=== PATIENT | female | born 1950 | race Caucasian/White ===

== ENCOUNTER → 2024-01-14 09:47 | Outpatient (REF) | payer OTHER, SELFPAY | LOC: RAD 09:47 | PROVIDERS: ATTENDING PHYSICIAN Orthopaedic Surgery Hand Surgery; FAMILY PHYSICIAN Family Medicine | DX: M25.512 Pain in left shoulder (principal) | CPT/HCPCS: 73200 ==

== ENCOUNTER 2024-02-14 06:14 | Inpatient (IN) | payer OTHER, SELFPAY ==
[2024-02-14] VITALS (26 sets, daily range): BP systolic 107–159; BP diastolic 43–80; BMI 43.8
[2024-02-14] MEDS: TYLENOL 1000 MG PO (06:48)
[2024-02-14] MEDS: CELEBREX 200 MG PO (06:49)
--- NOTE | 2024-02-14 07:43 | W.PN.ORTHO ---
Today's Communication / Plan
-
D/c when clinically stable.
Assessment
.
Distal Motor Intact: Yes
Dressing:
Scant areas of incisional bleeding.
Assessment:
L shoulder OA s/p L Reverse LUL w/ Dr Gan 02/14/24
- s/p L TKA, 05/2014, and R TKA, 08/2014, by Dr Olivera
DVT prophylaxis - Eliquis at modified dosing, b/l venous foot pumps
- Will resume home Eliquis dosing POD 3 if hemodynamically stable
Acute L ankle pain starting 02/12 - pt describes ankle 'gave way' and heard audible 'pop' sound - can bear weight but reportedly uncomfortable
- Order ankle x-ray
- Encouraged ice
- Tylenol ATC and Oxycodone prn
SVT in OR - short run w/o episodes since - monitor on tele
- Notably asymptomatic
- Appreciate cardio
HTN - + parameters - monitor BP
Remote DVT after ankle fx 2* factor V leiden � resume Eliquis as stated above
- Frequent and early ambulation as tolerated
- Plasma flow devices HIGHLY encouraged upon d/c
CKD stage 3 - minimize nephrotoxins
GERD - add Pepcid HS
H/o Hep B
DDD
Sciatica
Hypothyroidism
Depression
Anxiety
Osteoporosis
Morbid obesity, BMI 43.8
Follows pain mgmt. � was last Rx Oxycodone 5 mg on 01/19/24 (60 tabs for 30 days)
Plan
.
Surgery / Date: L Thompson MCCARTY w/ Dr Gan 02/14/24
DVT Prophylaxis: Other (Eliquis)
Activity:
Out of bed.
PT/OT
Discharge Plan: Home
Subjective
.
.:
Patient examined resting in PACU.
L shoulder pain 2/10 - tolerable per pt.
L ankle pain reported since yesterday. Pt reports hearing a 'pop'.
Reported SVT while in OR.
Vital Signs and Labs
.
Vital Signs and Labs:
Temp Pulse Resp BP Pulse Ox
98.2 F 87 18 159/73 96
02/14/24 06:19 02/14/24 06:19 02/14/24 06:19 02/14/24 06:19 02/14/24 06:19
Physical Exam
-
HEENT: No pallor, cyanosis, or jaundice. Throat clear.
NECK: Supple. No JVD.
RESPIRATORY: Lungs clear to auscultation.
CVS: S1, S2 normal. RRR.
ABDOMEN: Soft, non-tender. No distension. Morbidly obese.
EXTREMITIES: + LUE sling. Good molasses and caramel operator and radial pulses b/l. Able to wiggle fingers b/l. Strength equal, no calf pain with palpation/dorsiflexion. L ankle mildly TTP w/o visible injury. Chronic lymphedema of b/l LEs (L>R)
CLAY PUDDLER: AOx3. No focal deficits. construction management assistant grossly intact
--- NOTE | 2024-02-14 09:54 | CON.CAR ---
Addendum entered and electronically signed by Tyler Logan MD (Ellie) 02/14/24 13:19:
I saw and examined the patient.
The RETAIL MARKETING EXECUTIVE's note was reviewed and I agree with the note.
Comment:
73-year-old female (seen by Dr. Beck in 2014 for preop risk assessment for knee replacement surgery), with factor V Leiden (on apixaban), hypothyroidism, GERD, DVT in the setting of ankle fracture, and hypertension who presented for right total
shoulder arthroplasty with Dr. Gan. During her operation, she was noted to have a short run of supraventricular tachycardia. On interview with the patient, this has never been an issue before. She does not see a torch straightener consistently.
She has no history of chest pain, palpitations, shortness of breath, or syncope. Review of her labs reveals a mildly elevated creatinine, normal electrolytes, and normal TSH. Review of telemetry during the OR reveals a short run of
supraventricular tachycardia. Twelve-lead ECG in sinus rhythm shows sinus bradycardia with left axis deviation and left ventricular hypertrophy with repolarization abnormalities. She is currently asymptomatic.
For her SVT, we can continue to monitor her on telemetry. We should check electrolytes again tomorrow. Given that she is asymptomatic, she does not have an indication for beta-blockers. I advised her that if she develops symptoms like
palpitations as an outpatient, she should let her primary care doctor know who can refer her to us.
Original Note:
Consultation
Consultation Request
Date/Time Consultation Requested: 02/14/2024 09:50
Date/Time Consultation Performed: 02/14/2024 10:00
Requesting Provider: Celia Yancey PA-C
Performing Provider: YENNY Kimble for Dr. Logan
Reason for Consultation: SVT
Medical History
-
Chief Complaint: Left shoulder pain
History of Present Illness:
Nelda Haque is a 73-year-old female (seen by Dr. Beck in 2014 for preop risk assessment for knee replacement surgery), with factor V Leiden (on apixaban), hypothyroidism, GERD, DVT in the setting of ankle fracture, and hypertension who presented
for right total shoulder arthroplasty with Dr. Gan. Intraoperatively she was found to have SVT. Postoperative EKG with sinus bradycardia, LVH, and left axis with a heart rate of 59 bpm. In the PACU, she is in sinus bradycardia. She is having
no pain. No shortness of breath. No chest pain.
Past Medical History
Past Medical History: GERD, Hypothyroidism and Other (Factor V Leiden, DVT [in the setting of ankle fracture])
Past Surgical History: Cholecystectomy, Orthopedic and Tonsilectomy
Social History
Living: Alone
Employment: Retired
Family History
Family History: Reviewed & Not Pertinent
Allergies / Home Medications
Allergy/AdvReac Type Severity Reaction Status Date / Time
latex Allergy Rash Verified 02/14/24 06:17
meloxicam Allergy Swelling Verified 02/14/24 06:17
�Medication �Instructions �Recorded �Confirmed �Type
spironolactone 25 mg tablet 25 mg PO DAILY ##0 06/14/14 02/14/24 Rx
acetaminophen 500 mg tablet 1,000 mg PO PRN PRN pain 09/02/14 02/14/24 History
(Tylenol Extra Strength)
oxycodone 5 mg tablet 1 - 2 tab PO Q4HPRN PRN pain ##90 09/05/14 02/14/24 Rx
apixaban 5 mg tablet (Eliquis) 5 mg PO BID 02/08/24 02/14/24 History
cholecalciferol (vitamin D3) 125 125 mcg PO DAILY 02/08/24 02/14/24 History
mcg (5,000 unit) tablet (Vitamin
D3)
clonazepam 1 mg tablet (Klonopin) 1 mg PO HS 02/08/24 02/14/24 History
furosemide 20 mg tablet 20 mg PO DAILY 02/08/24 02/14/24 History
levothyroxine 137 mcg tablet 137 mcg PO DAILY 02/08/24 02/14/24 History
mupirocin 2 % topical ointment 1 applic topical BID pre op 02/08/24 02/14/24 History
trazodone 300 mg tablet 300 mg PO HS 02/08/24 02/14/24 History
Review of Systems
-
History Source: Patient
All other systems: Negative unless noted
Constitutional: No Symptoms
EENT: No Symptoms
Respiratory: No Symptoms
Cardiac: No Symptoms
Abdomen/GI: No Symptoms
: No Symptoms
Musculoskeletal: No Symptoms
Skin: No Symptoms
Neurological: No Symptoms
Endocrine: No Symptoms
Hematologic/Lymphatic: No Symptoms
Physical Exam
Vital Signs
Temp Pulse Resp BP Pulse Ox
97.0 F 58 15 107/80 97
02/14/24 09:33 02/14/24 09:30 02/14/24 09:30 02/14/24 09:30 02/14/24 09:30
Physical Exam
General: Well Developed, Well Nourished, No Apparent Distress and Comfortable
HEENT: Normocephalic, Anicteric and Moist Mucous Membranes
Respiratory: Clear and Non Labored Respirations
Cardiac: S1/S2, Regular Rhythm and Peripheral Edema (Nonpitting lower extremity [lymphedema])
Breast: Deferred by me
GI: Soft, Non Tender, Non Distended and Normal Bowel Sounds
Rectal: Deferred by Provider
Genito-urinary: No Costovertebral Tender
Musculoskeletal: No Clubbing
Skin: Warm and Dry
Neuro: AO x 3
Hematologic/Lymphatic: No Lymphadenopathy
Psych: Calm
Impression / Plan
-
BACKGROUND: 73F with hypertension, factor V Leiden, hypothyroidism, and obesity presented for right total shoulder arthroplasty was found to have SVT intraoperatively
Product Test Engineer: Dr. Beck (preoperative risk assessment 2014)
PLAN:
SVT
-Postoperative EKG with sinus bradycardia, LVH, and left axis with a heart rate of 59 bpm
-BMP, magnesium, and TSH with reflex to T4 pending
-Brief run of tachycardia IntraOp, she received esmolol and metoprolol
-Follow telemetry
S/p right TSA by Dr. Gan 02/14/2024
-Postoperative management per orthopedics
Chronic lymphedema, on furosemide and spironolactone
Factor V Leiden, on apixaban
Hypothyroidism, on levothyroxine
Obesity, BMI 43.8, she would benefit from weight loss
SUBJECTIVE:
See ROS
Data Reviewed
-
EKG: Report Reviewed by me
Labs: Labs Reviewed by me
Old Records: Reviewed
[2024-02-14 10:32] LABS: Glycohemoglobin (HgbA1c) 5.4 % (4.0-5.6)
[2024-02-14 10:53] LABS: Blood Urea Nitrogen 22 mg/dl (7-17); Calcium 9.3 mg/dl (8.4-10.2); Carbon Dioxide 28 mmol/L (22-30); Chloride 102 mmol/L (98-107); Estimated Creatinine Clearance 39 ml/min; Glucose 135 mg/dl (70-99); Potassium 4.4 mmol/L (3.5-5.1); Sodium 140 mmol/L (135-145); eGFR 39.73
[2024-02-14] MEDS: ALDACTONE PO (10:53)
[2024-02-14] MEDS: LIDOCAINE 4% PATCH 2 PATCH TOPICAL (10:54)
[2024-02-14] MEDS: VITAMIN D3 (cholecalciferol) 125 MCG PO (10:56)
[2024-02-14] MEDS: TYLENOL 650 MG PO ×3 (10:57→20:46)
[2024-02-14] MEDS: LASIX PO (10:58)
[2024-02-14 11:22] LABS: TSH Reflex To Free T4 1.08 uIU/ml (0.47-4.68)
--- NOTE | 2024-02-14 15:00 | PTCARENOTE ---
pt from PACU to 2107 with PACU staff. pt AAOx3, oriented to room. left arm sling/brace/immobilizer in place and adjusted for fit and comfort. b/l foot pumps in place. pt denies any pain at this time
[2024-02-14] MEDS: ANCEF 5 IV ×2 (15:07→20:59)
[2024-02-14] MEDS: NSS 1000 IV (15:08)
[2024-02-14] MEDS: ROXICODONE 5 MG PO ×2 (15:49→20:59)
[2024-02-14] MEDS: COLACE 100 MG PO (20:46)
[2024-02-14] MEDS: BACTROBAN 2% OINTMENT 1 APPLIC NASAL (20:46)
[2024-02-14] MEDS: SYNTHROID PO (20:46)
[2024-02-14] MEDS: ELIQUIS 2.5 MG PO (20:46)
[2024-02-14] MEDS: SENOKOT PO (20:47)
[2024-02-14] MEDS: PEPCID 20 MG PO (22:31)
[2024-02-14] MEDS: KLONOPIN 1 MG PO (22:31)
[2024-02-14] MEDS: DESYREL 300 MG PO (22:31)
[2024-02-15] MEDS: TYLENOL PO ×2 (00:24→13:39)
[2024-02-15 03:15] VITALS: BP 134/69
[2024-02-15] MEDS: TYLENOL 650 MG PO ×4 (03:56→21:29)
[2024-02-15] MEDS: SYNTHROID 137 MCG PO (05:30)
[2024-02-15] MEDS: ROXICODONE 5 MG PO (05:36)
[2024-02-15 05:49] VITALS: BMI 44.9
[2024-02-15 07:03] VITALS: BP 128/62
[2024-02-15] MEDS: LIDOCAINE 4% PATCH 2 PATCH TOPICAL (08:04)
[2024-02-15] MEDS: ALDACTONE 25 MG PO (08:05)
[2024-02-15] MEDS: ELIQUIS 2.5 MG PO ×2 (08:05→21:29)
[2024-02-15] MEDS: LASIX 20 MG PO (08:05)
[2024-02-15] MEDS: VITAMIN D3 (cholecalciferol) 125 MCG PO (08:05)
[2024-02-15] MEDS: COLACE 100 MG PO ×2 (08:05→21:29)
[2024-02-15] MEDS: BACTROBAN 2% OINTMENT 1 APPLIC NASAL ×2 (08:06→21:28)
[2024-02-15] MEDS: SENOKOT 17.2 MG PO (08:06)
--- NOTE | 2024-02-15 08:19 | W.PN.CD ---
Today's Communication / Plan
-
-PSVT with likely tachycardia-bradycardia syndrome.
-Had another run of PSVT on telemetry at 5 AM this morning with heart rates to 140s (asymptomatic); however, patient also had a 2-second pause (nonconducted P wave).
-Case discussed with EP Cardiology; will start low-dose beta-coy (metoprolol tartrate 25 mg BID) and continue engraver signature.
-If the patient has continued pauses or significant bradycardia, patient will need to undergo permanent pacemaker implantation tomorrow morning.
-EP Cardiology to review patient's telemetry tomorrow and determine whether pacemaker is indicated at that time.
-Will keep the patient NPO after midnight in preparation for possible permanent pacemaker implantation tomorrow.
-Will obtain echocardiogram today to assess heart murmur.
Impression / Plan
-
BACKGROUND: 73F with hypertension, factor V Leiden, hypothyroidism, and obesity presented for right total shoulder arthroplasty was found to have SVT intraoperatively
Manifest/Order Organizer Print Orders: Dr. Beck (preoperative risk assessment 2014)
PLAN:
PSVT with likely tachycardia-bradycardia syndrome:
-Brief run of tachycardia IntraOp, she received esmolol and metoprolol
-Had another run of PSVT on telemetry at 5 AM this morning with heart rates to 140s (asymptomatic); however, patient also had a 2-second pause (nonconducted P wave).
-Case discussed with EP Cardiology; will start low-dose beta-coy (metoprolol tartrate 25 mg BID) and continue engraver signature.
-If the patient has continued pauses or significant bradycardia, patient will need to undergo permanent pacemaker implantation tomorrow morning.
-EP Cardiology to review patient's telemetry tomorrow and determine whether pacemaker is indicated at that time.
-Will keep the patient NPO after midnight in preparation for possible permanent pacemaker implantation tomorrow.
2/6 systolic heart murmur:
-Will obtain echocardiogram today to assess heart murmur.
S/p right TSA by Dr. Gan 02/14/2024
-Continue postoperative management per Orthopedics
Chronic lymphedema, on furosemide and spironolactone
Factor V Leiden, on apixaban
Hypothyroidism, on levothyroxine
Obesity, BMI 43.8, she would benefit from weight loss
SUBJECTIVE:
-Had another run of PSVT on telemetry at 5 AM this morning with heart rates to 140s (asymptomatic); however, patient also had a 2-second pause (nonconducted P wave).
Physical Exam
Vital Signs/Labs
Vital Signs
Temp Pulse Resp BP Pulse Ox
97.6 F 72 14 128/62 94
02/15/24 07:03 02/15/24 07:03 02/15/24 07:03 02/15/24 07:03 02/15/24 07:03
02/14/24 02/15/24 02/16/24
06:59 06:59 06:59
Actual Weight 102.3 kg 104.978 kg
Magnesium 2.0 mg/dl (1.6-2.3) 02/14/24 10:30
Physical Exam
Constitutional: No acute distress and Comfortable
EENT: Anicteric
Cardiovascular: Rhythm & rate is regular (Ectopy present), Pedal edema present (Chronic lymphedema), Systolic murmur present (2/6) and S1S2 is normal
Respiratory: Respiratory effort normal and Lungs clear to auscul.
GI: Soft
Neuro/Psych: AO x 3
Other: Skin (Warm, dry)
Data Reviewed
-
Date of Service: February 15, 2024
EKG: Tracing Personally Visualized and interpreted (Telemetry: PSVT to 140s, 2-second pause (with nonconducted P wave))
Medical Tests (PFT, Pathology etc): Discussed with Physician (Orthopedic Surgeon, EP Cardiology), Discussed with Nurse and Discussed with Patient
Labs: Labs Reviewed by me
[2024-02-15 08:33] LABS: Blood Urea Nitrogen 19 mg/dl (7-17); Calcium 9.9 mg/dl (8.4-10.2); Carbon Dioxide 25 mmol/L (22-30); Chloride 104 mmol/L (98-107); Estimated Creatinine Clearance 46 ml/min; Glucose 176 mg/dl (70-99); Potassium 4.6 mmol/L (3.5-5.1); Sodium 143 mmol/L (135-145)
[2024-02-15 08:53] VITALS: BP 153/74
[2024-02-15] MEDS: LOPRESSOR 25 MG PO ×2 (09:02→21:30)
[2024-02-15] MEDS: ATIVAN 0.5 MG PO (09:08)
--- NOTE | 2024-02-15 09:23 | W.PN.ORTHO ---
Today's Communication / Plan
-
Monitor on tele. Start BB per cardio.
Work w/ OT as able.
D/c when clinically stable.
Assessment
.
Distal Motor Intact: Yes
Dressing:
Scant areas of old incisional bleeding.
Assessment:
L shoulder OA s/p L Reverse TSA w/ Dr Gan 02/14/24
- s/p L TKA, 05/2014, and R TKA, 08/2014, by Dr Olivera
DVT prophylaxis - Eliquis at modified dosing, b/l venous foot pumps
- Will resume home Eliquis dosing POD 3 if hemodynamically stable
Newly diagnosed SVT w/ tachycardia-bradycardia syndrome - appreciate cardio
- Monitor on tele
- To start low dose BB BID today
- Clarified w/ cardio - continue Eliquis at modified dosing but hold AM dose prior to possible PPM insertion 02/15. Eliquis would be resumed right after procedure
- Possible PPM insertion tomorrow if continues w/ pauses or has significant bradycardia. Will be NPO after midnight
Acute L ankle pain starting 02/12 - pt described ankle 'gave way' and heard audible 'pop' sound - can bear weight but reportedly uncomfortable
- Ankle x-ray WNL
- Encouraged ice
- Tylenol ATC and Oxycodone prn
HTN - + parameters - monitor BP
Remote DVT after ankle fx 2* factor V leiden � resumed Eliquis as stated above
- Frequent and early ambulation as tolerated
- Plasma flow devices HIGHLY encouraged upon d/c
CKD stage 3 - minimize nephrotoxins
GERD - add Pepcid HS
H/o Hep B
DDD
Sciatica
Hypothyroidism
Depression
Anxiety
Osteoporosis
Morbid obesity, BMI 43.8
Follows pain mgmt. � was last Rx Oxycodone 5 mg on 01/19/24 (60 tabs for 30 days)
Plan
.
Surgery / Date: L Reverse TSA w/ Dr Gan 02/14/24
DVT Prophylaxis: Other (Eliquis )
Activity:
Out of bed.
PT/OT
Discharge Plan: Home
Subjective
.
.:
Patient resting comfortably this AM.
L shoulder pain minimal over last 24 hours.
Asymptomatic run of SVT this AM followed by 2 sec pause.
Vital Signs and Labs
.
Vital Signs and Labs:
Lab Results
02/15/24 08:06
Temp Pulse Resp BP Pulse Ox
97.6 F 72 14 128/62 94
02/15/24 07:03 02/15/24 07:03 02/15/24 07:03 02/15/24 07:03 02/15/24 07:03
Non-invasive Hgb result: 12.3
Physical Exam
-
HEENT: No pallor, cyanosis, or jaundice. Throat clear.
NECK: Supple. No JVD.
RESPIRATORY: Lungs clear to auscultation.
CVS: S1, S2 normal. RRR.�
ABDOMEN: Soft, non-tender. No distension. Morbidly obese.
EXTREMITIES: + LUE sling. Good issuing operator/radial pulses b/l. Able to wiggle fingers b/l. Strength equal, no calf pain with palpation/dorsiflexion. Calves soft. Chronic lymphedema of b/l LEs (L>R).
SEISMIC PLOTTER: AOx3. No focal deficits. windows laptop technician grossly intact
--- NOTE | 2024-02-15 11:22 | CM ---
Met with pt at bedside
Pt reports she lives alone in an apartment; no steps to enter, FF set-up
Was living independently, retired, was driving, doing on shopping, etc
DME - shower chair, commode, cane, rolling walker
SNF - [facility] in past
HH - no hx
Has ride at discharge
PCP - Yazmin Trujillo
Pharm - [facility]
Pt reports she will have family member staying with her at home initially. Has also planned for private care-taker to assist as needed
OT - recs
Discussed with pt - no preference, requested [facility]
Will send referral in [facility]
Plan - anticipate home with [facility] when medically stable
[2024-02-15 15:14] VITALS: BP 125/53
[2024-02-15 19:20] VITALS: BP 123/51
[2024-02-15] MEDS: PEPCID 20 MG PO (21:29)
[2024-02-15] MEDS: DESYREL 300 MG PO (21:29)
[2024-02-15] MEDS: KLONOPIN 1 MG PO (21:29)
[2024-02-15] MEDS: SENOKOT PO (21:29)
[2024-02-15 22:55] VITALS: BP 117/63
[2024-02-16] VITALS (10 sets, daily range): BP systolic 107–147; BP diastolic 49–68
[2024-02-16] MEDS: TYLENOL PO ×3 (00:04→23:29)
[2024-02-16] MEDS: SYNTHROID 137 MCG PO (05:31)
[2024-02-16] MEDS: VITAMIN D3 (cholecalciferol) 125 MCG PO (08:57)
[2024-02-16] MEDS: LOPRESSOR 25 MG PO ×2 (08:58→20:16)
[2024-02-16] MEDS: LIDOCAINE 4% PATCH 2 PATCH TOPICAL (08:59)
[2024-02-16] MEDS: TYLENOL 650 MG PO ×4 (08:59→20:17)
[2024-02-16] MEDS: LASIX PO (09:05)
[2024-02-16] MEDS: ALDACTONE PO (09:05)
[2024-02-16] MEDS: COLACE PO ×2 (09:05→20:16)
[2024-02-16] MEDS: SENOKOT PO ×2 (09:05→20:17)
[2024-02-16] MEDS: ROXICODONE 5 MG PO ×2 (09:52→17:05)
--- NOTE | 2024-02-16 11:09 | W.PN.ORTHO ---
Today's Communication / Plan
-
Pt doing well from an orthopedic standpoint. Will await cardio input re: possible pacemaker.
D/c when clinically stable.
Assessment
.
Distal Motor Intact: Yes
Dressing:
Scant areas of old incision bleeding - unchanged since yesterday.
Assessment:
L shoulder OA s/p L Reverse TSA w/ Dr Gan 02/14/24
- s/p L TKA, 05/2014, and R TKA, 08/2014, by Dr Olivera
DVT prophylaxis - Eliquis at modified dosing, b/l venous foot pumps
- Eliquis held 02/15 AM in prep for possible PPM today
Newly diagnosed SVT w/ tachycardia-bradycardia syndrome - appreciate cardio
- Monitor on tele
- TTE 02/15/24: Preserved EF. Moderate concentric hypertrophy. Stage III diastolic dysfunction suggestive of restrictive filling. Biatrial enlargement. Mild MR. Overall findings are suggestive of cardiac amyloidosis
- Started on low dose Metoprolol BID 02/14. Denies any ADRs
- Diuretics and Eliquis held 02/15 AM, currently NPO in prep for possible PPM insertion
Acute L ankle pain starting 02/12 - pt described ankle 'gave way' and heard audible 'pop' sound - can bear weight but reportedly uncomfortable
- Ankle x-ray WNL
- Encouraged ice
- Tylenol ATC and Oxycodone prn
HTN - + parameters - monitor BP
Remote DVT after ankle fx 2* factor V leiden � resumed Eliquis as stated above
- Frequent and early ambulation as tolerated
- Plasma flow devices HIGHLY encouraged upon d/c
CKD stage 3 - minimize nephrotoxins
GERD - added Pepcid HS
H/o Hep B
DDD
Sciatica
Hypothyroidism
Depression
Anxiety
Osteoporosis
Morbid obesity
Follows pain mgmt. � was last Rx Oxycodone 5 mg on 01/19/24 (60 tabs for 30 days)
Plan
.
Surgery / Date: L Reverse TSA w/ Dr Gan 02/14/24
DVT Prophylaxis: Other (Eliquis )
Activity:
Out of bed.
PT/OT
Discharge Plan: Home w/ VN
Subjective
.
.:
Patient resting comfortably in her chair.
L shoulder pain worsened overnight; however, does report relief w/ current pain meds.
Denies any new significant complaints. No symptoms reported w/ initiation of BB therapy.
Awaiting possible PPM today.
Vital Signs and Labs
.
Vital Signs and Labs:
Lab Results
02/15/24 08:06
Temp Pulse Resp BP Pulse Ox
97.5 F 73 14 124/59 98
02/16/24 07:18 02/16/24 08:58 02/16/24 07:18 02/16/24 08:58 02/16/24 07:18
Non-invasive Hgb result: 12.3
Physical Exam
-
HEENT: No pallor, cyanosis, or jaundice. Throat clear.
NECK: Supple. No JVD.
RESPIRATORY: Lungs clear to auscultation.
CVS: S1, S2 normal. RRR.�
ABDOMEN: Soft, non-tender. No distension. Morbidly obese.
EXTREMITIES: + LUE sling. Good lead web application developer/radial pulses b/l. Able to wiggle fingers b/l. Strength equal, no calf pain with palpation/dorsiflexion. Calves soft.
HOME SUPPORT WORKER: AOx3. No focal deficits. pretzel packer grossly intact
--- NOTE | 2024-02-16 14:43 | CM ---
Case management following for discharge planning
Chart reviewed
Spoke with Sera from [facility] - accepted for home care needs
Cardiology following - poss Pacemaker this admission
Plan - anticipate home with [facility] when medically ready
--- NOTE | 2024-02-16 14:47 | W.PN.UPDATE ---
Update Note
Progress Note Update
Pt is set to undergo a pacemaker insertion today.
Eliquis has been on hold since this morning.
Will defer to cardiology about when to resume medication.
If resuming tonight, please re-order Eliquis.
Given her minimal L shoulder incisional bleeding and no visible hematoma, would be OK w/ resumption of 5 mg PO BID at this point.
--- NOTE | 2024-02-16 16:00 | W.PN.CD ---
Today's Communication / Plan
-
- PPM today
- Metoprolol 50 mg QD post-implant.
Impression / Plan
-
BACKGROUND: 73F with hypertension, factor V Leiden, hypothyroidism, and obesity presented for right total shoulder arthroplasty was found to have SVT intraoperatively
Ultrasonic Seaming Machine Operator: Dr. Beck (preoperative risk assessment 2014)
PLAN:
PSVT with likely tachycardia-bradycardia syndrome:
-ECHO showed severe restrictive filling with diastolic heart failure with biatrial enlargement consistent with amyloidosis.
-Frequent tachycardia could be atrial flutter giles with AF
-Plan for dual chamber PPM today
-EKG showed IVCD and LAFB
-Plan for dual chamber PPM with pauses and tachy sundar syndrome and amyloidosis.
- Patient is right handed and had left shoulder surgery.
- Difficulty with keeping
Atrial FLutter
- With Amyloidosis and biatrial enlargement, and Factor V Leiden, the risk of thromboembolic events are high
- Continue Eliquis
- With PPM in place, can add Metoprolol or digoxin in one to two days once lead dislodgement risk is low.
2/6 systolic heart murmur:
-flow murmur with severe diastolic dysfunction.
S/p right TSA by Dr. Gan 02/14/2024
-Continue postoperative management per Orthopedics
Chronic lymphedema, on furosemide and spironolactone
Factor V Leiden, on apixaban
Hypothyroidism, on levothyroxine
Obesity, BMI 43.8, she would benefit from weight loss
SUBJECTIVE:
-continued tachy sundar syndrome with tachycardia to 140 and slow baseline bradycardia with short pauses
Physical Exam
Vital Signs/Labs
Vital Signs
Temp Pulse Resp BP Pulse Ox
98.4 F 56 15 127/59 94
02/16/24 11:30 02/16/24 11:30 02/16/24 11:30 02/16/24 11:30 02/16/24 11:30
02/15/24 02/16/24 02/17/24
06:59 06:59 06:59
Actual Weight 104.978 kg
02/15/24 08:06
Magnesium 2.0 mg/dl (1.6-2.3) 02/14/24 10:30
Physical Exam
Constitutional: No acute distress and Comfortable
EENT: Anicteric and Moist mucous membranes
Cardiovascular: Rhythm & rate is regular, Pedal edema is absent and JVD pressure is normal
Respiratory: Respiratory effort normal and Wheeze Absent
GI: Soft, Non tender and Normal bowel sounds
Neuro/Psych: Alert, Oriented and AO x 3
Other: Skin (left shoulder aquacel in place. )
Data Reviewed
-
Date of Service: February 16, 2024
Medical Decision Making: Reviewed Test Results, Independent Historian Assessment, Test Interpretation and Review of Case with other Provider
EKG: Tracing Personally Visualized and interpreted
Echo: Report Reviewed by me
Labs: Labs Reviewed by me
Old Records: Reviewed
--- NOTE | 2024-02-16 16:19 | ITS.CL.PACE ---
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
Pacemaker Implant
Procedure Report:
Dual Chamber Pacemaker Placement:
Ms. Haque is a very pleasant 73 yrs old woman with baseline bradycardia and Tachy Rg syndrome with symptomatic pauses. She is recommended for PPM placement.�
Indications: Tachy Rg syndrome with symptomatic bradycardia
Date of the Procedure: 02/16/2024
Pre-Operative Diagnosis: Tachy Rg syndrome
Post-Operative Diagnosis: Tachy Rg syndrome
Procedure Performed: DUAL CHAMBER PACEMAKER IMPLANTATION
Performing Physician:
Jaqui Ames MD
Anesthesia:
See anesthesia records
Pre-operative antibiotics:
Ancef
Detailed Description of the Procedure:
The patient was identified using hospital identification and informed consent obtained for the procedure. The risks were explained including, but not limited to: Bleeding, infection, arrhythmia, stroke, vascular/cardiac/lung puncture, surgery,
pacemaker dependency/device malfunction. All questions were answered.
The patient was brought to the electrophysiology laboratory in stable condition in fasting state. Continuous electrocardiographic and hemodynamic monitoring was initiated. The initial rhythm was sinus bradycardia.
A surgical pause and time out was performed immediately prior to the procedure with review of her medical history, recent labs, allergies and medications with site of procedure identified and consent noted in the chart. Antibiotics pre operatively
given. All team members concurred.
The procedure site was meticulously prepared with surgical scrub and allowed to dry with no pooling. Sterile draping was applied to cover the procedure site. The image intensifier was draped with sterile bag and positioned over the patient.
The left infraclavicular region was prepped and draped in the usual sterile fashion. Local anesthesia was administered subcutaneously using 1% lidocaine / Bupivacaine. The left shoulder surgery made cephalic vein inaccessible.
Following infiltration with local anesthetic, the axillary vein was accessed using the fluoroscopic guidance using the micro-puncture apparatus. The vascular sheaths were introduced for lead access. The leads were advanced into the right ventricle
and the right atrium.
The right ventricular lead was secured in position with an active fixation technique at the apical septal location.
The atrial lead was deployed to right atrial appendage and anchored with active fixation.�
There was excellent sensing, pacing, and impedance from the leads, with no diaphragmatic stimulation at 10 V output.�Bovie cautery, antibiotics, and fluoroscopy were used.
The sheaths were withdrawn, and the thresholds remained acceptable. The leads were secured in position at the venous entry site with 2-0 Ethibond. A pocket was fashioned contiguous to the incision.
A pursestring suture was a deployed around the entry of the leads to secure the bleeding.
The electrode terminals were connected to the pulse generator, which was placed into the pocket. The wound was irrigated thoroughly with antibiotic solution. The pacemaker was secured to the underlying fascia with 2-0 Ethibond suture.
The wound was closed in 3 layers using 2-0 V Loc then 2 layers of 4-0 V loc sutures to the dermis. Steri-Strips and Aquacel applied to the wound.
Procedure End:
The procedure was tolerated well.
Estimated Blood loss:
5 cc
Specimens Removed:
No cultures and no specimens were obtained. No intraoperative pathology was identified.
Fluoro time:
2.0 min / 8.0mGy
Urine output:
None
Packs / Drains/ Tubes:
None
Instrument / Sponge Count Correct:
Yes
Complications of the Procedure:
None
Condition of Patient at Time of Transfer:
Hemodynamically stable with no neurological or vascular compromise.
Device information:�
Generator: PowerCard; Model: W1DR01; Serial # [id number]�
Atrial Lead: PowerCard; Model: 5076-45; Serial # [id number]
Measured data in the right atrium was sensing of 3.3 mV, impedance of 418 ohms and threshold of 0.75 V at 0.4ms.
RV Lead: Medtronic; Model: 5076-52; Serial # [id number]
Measured data in the RV lead was sensing of 12.3mV, impedance of 456 ohms and threshold of 0.75 V at 0.4ms�
Rg parameter settings were AAIR <=>DDDR 60-130 bpm. �
����������� Mode Switch: On
����������� Paced AV interval: 180ms
����������� Sensed AV interval: 150 ms.
����������� Rate Adaptive A-V Interval: Off
Output� parameters:
����������������������� Amplitude (V)������������� Pulse Width (ms)������� Sensitivity (mV)
����������� RA: ����� 3.5 ����������������� ����������� 0.4������������������ ����������� 0.3
����������� RV:������ 3.5������������������ ����������� 0.4������������������ ����������� 0.9
Summary:
Successful implantation of MRI compatible dual chamber Medtronic pacemaker
Results/Recommendations:
-Please follow up CXR�
1. Please provide patient with adequate pain control�
Instructions to be given to patient:�
- Please follow up with [facility] at [address] [place] [address] ([phone]) to get your wound checked within 14 days of your discharge.
- Do not wet incision site until after it is evaluated at cardiology clinic. No showers until then. Sponge baths are OK.�
- No swimming until cleared by the cardiology clinic.
- Do not lift left elbow above shoulder, particularly with sudden jerking movements, for 1 month�
- Do not lift anything weighing more than 10 pounds with the left arm for 1 month�
- If you notice any fevers, shortness of breath, lightheadedness, chest pain, or worsening swelling in the wound site, please contact the arrhythmia clinic, contact your switch repairer, or present to the hospital for evaluation.�
Jaqui Ames MD
Electrophysiology
--- NOTE | 2024-02-16 17:48 | PTCARENOTE ---
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 Pressure dressing to left chest wall intact. Will continue to monitor.
[2024-02-16] MEDS: ANCEF 5 IV (20:16)
--- NOTE | 2024-02-16 21:37 | PTCARENOTE ---
TT Dr. Ames this evening regarding pt's Eliquis - Dr. Ames stated that pt will restart Eliquis 02/16.
[2024-02-16] MEDS: PEPCID 20 MG PO (21:56)
[2024-02-16] MEDS: KLONOPIN 1 MG PO (21:56)
[2024-02-16] MEDS: DESYREL 300 MG PO (21:56)
[2024-02-17 03:09] VITALS: BP 126/62
[2024-02-17] MEDS: ANCEF 5 IV (03:21)
[2024-02-17] MEDS: TYLENOL PO ×2 (03:21→03:29)
[2024-02-17] MEDS: SYNTHROID 137 MCG PO (05:34)
[2024-02-17 05:58] VITALS: BMI 45.1
[2024-02-17 06:26] LABS: Hematocrit 33.3 % (37.0-47.0); Mean Corpuscular Hgb 32.4 pg (27.0-31.0); Mean Corpuscular Volume 98.2 fL (81.0-99.0); Platelet Count 153 10^3/uL (130-400); Red Blood Cell Count 3.39 10^6/uL (4.20-5.40); Red Cell Dist. Width 12.6 % (11.5-14.5); White Blood Cell Count 7.6 10^3/uL (4.8-10.8)
[2024-02-17 06:55] LABS: Blood Urea Nitrogen 31 mg/dl (7-17); Calcium 9.1 mg/dl (8.4-10.2); Carbon Dioxide 27 mmol/L (22-30); Chloride 106 mmol/L (98-107); Estimated Creatinine Clearance 50 ml/min; Glucose 96 mg/dl (70-99); Magnesium 2.1 mg/dl (1.6-2.3); Potassium 4.4 mmol/L (3.5-5.1); Sodium 143 mmol/L (135-145); eGFR 53.06
[2024-02-17 07:28] VITALS: BP 134/62
--- NOTE | 2024-02-17 08:09 | W.PN.UPDATE ---
Update Note
Progress Note Update
On exam pacer site is normal. No hematoma, dressing C/D/I. CXR ok. EKG fine. Tele with appropriate A pacing
Do not add digoxin, we avoid in known/suspected amyloid.
Echo suggestive of amyloid, workup as outpatient.
OK for tarun on metoprolol ER 50 mg nightly from cardiac perspective
Resume prior Eliquis at AFib dosing of 5 mg BID (had been on for prior DVT)
F/u arranged with us.
Run of AT/Flutter last night with A-pace at termination
Cardiology will sign off. Please call with questions
[2024-02-17] MEDS: ALDACTONE PO (08:28)
[2024-02-17] MEDS: COLACE 100 MG PO (08:29)
[2024-02-17] MEDS: SENOKOT 17.2 MG PO (08:29)
[2024-02-17] MEDS: LASIX PO (08:29)
[2024-02-17] MEDS: TYLENOL 650 MG PO ×2 (08:29→12:17)
[2024-02-17] MEDS: LIDOCAINE 4% PATCH 2 PATCH TOPICAL (08:30)
[2024-02-17] MEDS: ROXICODONE 5 MG PO (08:33)
[2024-02-17] MEDS: LOPRESSOR PO (08:50)
[2024-02-17] MEDS: VITAMIN D3 (cholecalciferol) 125 MCG PO (08:50)
--- NOTE | 2024-02-17 09:47 | W.PN.ORTHO ---
Today's Communication / Plan
-
D/c today since clinically stable.
Assessment
.
Distal Motor Intact: Yes
Dressing:
Scant old incisional bleeding along L shoulder dressing.
Assessment:
L shoulder OA s/p L Reverse TSA w/ Dr Gan 02/14/24
- s/p L TKA, 05/2014, and R TKA, 08/2014, by Dr Olivera
DVT prophylaxis - initially Eliquis at modified dosing, b/l venous foot pumps
- Eliquis held 02/15 for PPM insertion
- Will resume Eliquis 5 mg PO BID tonight per cardio's instructions
Newly diagnosed SVT w/ tachycardia-bradycardia syndrome - appreciate cardio
- Monitored on tele
- TTE 02/15/24: Preserved EF. Moderate concentric hypertrophy. Stage III diastolic dysfunction suggestive of restrictive filling. Biatrial enlargement. Mild MR. 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
- Started on low dose Metoprolol BID 02/14. Denies any ADRs. Switched to Metoprolol 50 mg HS for d/c
- Diuretics and Eliquis held 02/15 AM. Resumed w/ BP parameters 02/16
Acute L ankle pain starting 02/12 - pt described ankle 'gave way' and heard audible 'pop' sound - can bear weight but reportedly uncomfortable
- Ankle x-ray WNL
- Encouraged ice
- Tylenol ATC and Oxycodone prn
HTN - + parameters - BPs overall stable
Remote DVT after ankle fx 2* factor V leiden � resume Eliquis as stated above
- Frequent and early ambulation as tolerated
- Plasma flow devices HIGHLY encouraged upon d/c
CKD stage 3 - minimize nephrotoxins- BMPs stable
GERD - added Pepcid HS
H/o Hep B
DDD
Sciatica
Hypothyroidism
Depression
Anxiety
Osteoporosis
Morbid obesity
Follows pain mgmt. � was last Rx Oxycodone 5 mg on 01/19/24 (60 tabs for 30 days) - given tomorrow is 30 days, will Rx Oxycodone for d/c use prn
Plan
.
Surgery / Date: L Reverse LUL w/ Dr Gan 02/14/24
DVT Prophylaxis: Other (Eliquis )
Activity:
Out of bed.
PT/OT
Discharge Plan: Home w/ VN
Subjective
.
.:
Patient resting comfortably in bed.
Pain minimal around L shoulder and pacemaker insertion site.
Denies any new significant complaints. AM labs/CXR yesterday stable.
Eager for potential d/c today.
Vital Signs and Labs
.
Vital Signs and Labs:
Lab Results
02/17/24 05:01
02/17/24 05:01
Temp Pulse Resp BP Pulse Ox
97.8 F 69 14 134/62 97
02/17/24 07:28 02/17/24 08:29 02/17/24 07:28 02/17/24 08:29 02/17/24 07:28
Non-invasive Hgb result: 12.3
Physical Exam
-
HEENT: No pallor, cyanosis, or jaundice. Throat clear.
NECK: Supple. No JVD.
RESPIRATORY: Lungs clear to auscultation.
CVS: S1, S2 normal. RRR.
Chest: Pacemaker site C/D/I.
ABDOMEN: Soft, non-tender. No distension. Morbidly obese.
EXTREMITIES: +LUE sling. Good machine gunner/radial pulses b/l. Able to wiggle fingers b/l. Strength equal, no calf pain with palpation/dorsiflexion. Calves soft.
SURGICAL BRACE MAKER: AOx3. No focal deficits. ship engines operating engineer grossly intact
--- NOTE | 2024-02-17 10:19 | W.DS.TRANS ---
DC Summary - Per Diem Physical Therapist
-
Discharge Instructions:
Sleep Apnea Risk Low
Discharge Diagnosis/Procedures L shoulder OA s/p L Reverse TSA w/ Dr Gan 10
, Tachy-sundar syndrome w/ symptomatic
bradycardia s/p Medtronic dual chamber pacemaker
insertion w/ Dr. Jaqui Ames 02/16/24
Diet Low Cholesterol
Additional Activity Non-weightbearing left upper extremity
Driving Restrictions Not until seen by your Dr
Bathing Restrictions DO NOT shower until evaluated by cardiology
Other Services VN
Instructions:
Stand-Alone Forms: DC Inst - Implanted Device
Total Shoulder Replacement D/C
Changes to Home Medications: Yes
Discharge Medications:
DC Medications w/original date entered in [employer]
cholecalciferol (vitamin D3) 125 mcg (5,000 unit) tablet (Vitamin D3) 125 mcg PO DAILY Supplement 02/08/24
clonazepam 1 mg tablet (Klonopin) 1 mg PO HS Mental Health/Anxiety 02/08/24
levothyroxine 137 mcg tablet 137 mcg PO DAILY Thyroid 02/08/24
trazodone 300 mg tablet 300 mg PO HS Sleep 02/08/24
Saccharomyces boulardii 250 mg capsule (Florastor) 250 mg PO BID #6 caps 02/17/24
acetaminophen 500 mg tablet (Tylenol Extra Strength) 1,000 mg (2 x 500 mg) PO Q6H #60 tabs 02/17/24
apixaban 5 mg tablet (Eliquis) 5 mg PO BID Blood Clot Prevention/Tx #0 tabs 02/17/24
docusate sodium 100 mg capsule 100 mg PO BID PRN constipation #30 caps 02/17/24
doxycycline monohydrate 100 mg capsule 100 mg PO BID #6 caps 02/17/24
furosemide 20 mg tablet 20 mg PO DAILY Fluid Retention/Swelling #0 tabs 02/17/24
lidocaine 4 % topical patch 2 patch topical DAILY #30 ea 02/17/24
metoprolol succinate 50 mg tablet,extended release 24 hr 50 mg PO DAILY@1999 #30 tabs 02/17/24
ondansetron HCl 4 mg tablet 4 mg PO Q6H PRN nausea and vomiting #30 tabs 02/17/24
oxycodone 5 mg tablet 5 - 10 mg (1 - 2 x 5 mg) PO Q6H PRN moderate-severe pain #30 tabs 02/17/24
sennosides 8.6 mg tablet (Senna Laxative) 17.2 mg (2 x 8.6 mg) PO BID PRN Constipation #30 tabs 02/17/24
spironolactone 25 mg tablet 25 mg PO DAILY #1 tab 02/17/24
Home Medication Changes
Saccharomyces boulardii 250 mg capsule (Florastor) 250 mg PO BID #6 caps 02/17/24
acetaminophen 500 mg tablet (Tylenol Extra Strength) 1,000 mg (2 x 500 mg) PO Q6H #60 tabs 02/17/24
docusate sodium 100 mg capsule 100 mg PO BID PRN constipation #30 caps 02/17/24
doxycycline monohydrate 100 mg capsule 100 mg PO BID #6 caps 02/17/24
lidocaine 4 % topical patch 2 patch topical DAILY #30 ea 02/17/24
metoprolol succinate 50 mg tablet,extended release 24 hr 50 mg PO DAILY@1999 #30 tabs 02/17/24
ondansetron HCl 4 mg tablet 4 mg PO Q6H PRN nausea and vomiting #30 tabs 02/17/24
oxycodone 5 mg tablet 5 - 10 mg (1 - 2 x 5 mg) PO Q6H PRN moderate-severe pain #30 tabs 02/17/24
sennosides 8.6 mg tablet (Senna Laxative) 17.2 mg (2 x 8.6 mg) PO BID PRN Constipation #30 tabs 02/17/24
Pending Results: No
--- NOTE | 2024-02-17 10:56 | CM ---
Pt for discharge today
Sister to transport home per pt
[facility] to follow for home care needs
Discussed IMM
Plan - Home with [facility]
f - [phone]
[2024-02-17 11:22] VITALS: BP 123/65
[2024-02-17 11:24] VITALS: BP 126/54
== END 2024-02-17 13:00 | disposition home health service (06) | DRG 483 ==
LOC: 2 SOUTH 06:14
PROVIDERS: Internal Medicine Cardiovascular Disease; Nurse Practitioner Adult Health; Nurse Practitioner Gerontology; Physician Assistant; ADMITTING PHYSICIAN Orthopaedic Surgery Hand Surgery; CONSULT PHYSICIAN Student in an Organized Health Care Education/Training Program; FAMILY PHYSICIAN Family Medicine
PROC: 0RRK00Z Replacement of Left Shoulder Joint with Reverse Ball and Socket Synthetic Substitute, Open Approach (ICD-10-PCS; 2024-02-14)
PROC: 0JH606Z Insertion of Pacemaker, Dual Chamber into Chest Subcutaneous Tissue and Fascia, Open Approach (ICD-10-PCS; 2024-02-16)
PROC: 02HK3JZ Insertion of Pacemaker Lead into Right Ventricle, Percutaneous Approach (ICD-10-PCS; 2024-02-16)
PROC: 02H63JZ Insertion of Pacemaker Lead into Right Atrium, Percutaneous Approach (ICD-10-PCS; 2024-02-16)
DX: M19.012 Primary osteoarthritis, left shoulder (principal); I47.10 Supraventricular tachycardia, unspecified; D68.51 Activated protein C resistance; Z68.41 Body mass index [BMI] 40.0-44.9, adult; I97.791 Other intraoperative cardiac functional disturbances during other surgery; E03.9 Hypothyroidism, unspecified; E66.01 Morbid (severe) obesity due to excess calories; I12.9 Hypertensive chronic kidney disease with stage 1 through stage 4 chronic kidney disease, or unspecified chronic kidney disease; N18.30 Chronic kidney disease, stage 3 unspecified; I49.5 Sick sinus syndrome; M75.102 Unspecified rotator cuff tear or rupture of left shoulder, not specified as traumatic; M25.572 Pain in left ankle and joints of left foot; K21.9 Gastro-esophageal reflux disease without esophagitis; I89.0 Lymphedema, not elsewhere classified; R79.89 Other specified abnormal findings of blood chemistry; Z88.6 Allergy status to analgesic agent; Z79.01 Long term (current) use of anticoagulants; Z79.890 Hormone replacement therapy; Z79.899 Other long term (current) drug therapy; Z91.040 Latex allergy status
CPT/HCPCS: 33208; 71045; 73020; 73610; 80048; 83036; 83735; 84443; 85027; 87070; 93005; 93306; 97110; 97167; 97535; C1713; C1776; C1892; C1898

== ENCOUNTER → 2024-07-17 10:43 | Outpatient (REF) | payer OTHER, SELFPAY | LOC: RAD 10:43 | PROVIDERS: ATTENDING PHYSICIAN Student in an Organized Health Care Education/Training Program; FAMILY PHYSICIAN Family Medicine | DX: I51.7 Cardiomegaly (principal) | CPT/HCPCS: 78803; A9538 ==

== ENCOUNTER → 2025-02-25 12:33 | Outpatient (REF) | payer OTHER, SELFPAY | LOC: EMG 12:33 | PROVIDERS: ATTENDING PHYSICIAN Physical Medicine & Rehabilitation; FAMILY PHYSICIAN Family Medicine | DX: R20.0 Anesthesia of skin (principal); R29.898 Other symptoms and signs involving the musculoskeletal system | CPT/HCPCS: 95886; 95909 ==